=== PATIENT | male | born 1985 | race Two or more races ===

== ENCOUNTER 2020-01-26 09:25 | Inpatient (IN) | payer MEDICAID, OTHER ==
[~2020-01-26] VITALS: Ht 165.1 cm; Wt 174.0 kg
[2020-01-26 11:51] LABS: Hematocrit 35.7 % (41.0-53.0); Hemoglobin 11.6 g/dL (13.5-17.5); Mean Corpuscular Hemoglobin 29.7 pg (28.0-32.0); Mean Corpuscular Hgb Conc. 32.6 g/dL (32.0-36.0); Platelet Count (auto) 208 10^3/uL (140-450); Red Blood Cells 3.92 10^6/uL (4.5-5.90); Red Cell Distribution Width 19.1 % (11.8-14.3); White Blood Cell 28.7 10^3/uL (4.4-10.8)
[2020-01-26 11:57] LABS: Basophils % (manual) 0 (0.0-2.0); Blast Cells 0; Promyelocytes % 0; Reactive Lymphocytes 0
[2020-01-26 12:06] LABS: Albumin 1.8 g/dL (3.4-5.0); Calcium 8.2 mg/dL (8.5-10.1)
[2020-01-26 12:10] LABS: BUN/Creatinine Ratio 62.9; Bilirubin, Total 2.1 mg/dL (0.2-1.0); Total Protein 8.2 g/dL (6.4-8.2)
[2020-01-26 12:15] LABS: Potassium 6.1 mmol/L (3.5-5.1)
[2020-01-26] MEDS ORDERED: SODIUM CHLORIDE 0.9% 1,000 ML IV ONE (12:40)
[2020-01-26] MEDS ORDERED: PIPERACILLIN-TAZO 4.5GM 100 ML IV ONE (12:45)
[2020-01-26 13:18] LABS: Band Neutrophils % (manual) 13; Lymphocytes % (manual) 9 (10.0-50.0); Metamyelocytes % 3; Monocytes % (manual) 6 (0-12); Myelocytes % 3
[2020-01-26 13:19] LABS: Eosinophils % (manual) 0 (0-7)
[2020-01-26] MEDS ORDERED: SODIUM BICARBONATE 8.4 % INJ 50ML VIAL IV ONE (16:30)
[2020-01-26] MEDS ORDERED: CALCIUM CHL 100MG/ML 1,000 MG in D5W 5% 100 ML IV ONE (16:30)
[2020-01-26] MEDS ORDERED: FUROSEMIDE 20 MG/2 ML VIAL IV ONE (16:30)
[2020-01-26] MEDS ORDERED: MORPHINE SULF INJ 2 MG/ML SYRINGE 1ML IV PRN ×2 (17:15)
[2020-01-26] MEDS ORDERED: ALUM & MAG HYDROX-SIMETH LIQ(MAALOX) 30 ML PO PRN (17:15)
[2020-01-26] MEDS ORDERED: DOCUSATE SOD 100 MG CAP PO PRN (17:15)
[2020-01-26] MEDS ORDERED: LACTATED RINGER'S 2,000 ML IV ONE (17:15)
[2020-01-26] MEDS ORDERED: ACETAMINOPHEN 325 MG TAB PO PRN (17:15)
[2020-01-26] MEDS ORDERED: NITROGLYCERIN 0.4 MG SL TAB SL PRN (17:15)
[2020-01-26] MEDS ORDERED: VANCOMYCIN PER PHARMACY 0 MG IV SCH (17:15)
[2020-01-26] MEDS ORDERED: VANCOMYCIN 1GM/250ML 250 ML IV ONE (17:15)
[2020-01-26] MEDS ORDERED: LORazepam 0.5 MG TAB PO PRN (17:15)
[2020-01-26] MEDS ORDERED: FUROSEMIDE 40 MG/4 ML VIAL IV ONE ×2 (17:15→19:00)
[2020-01-26 17:43] LABS: Creatine Kinase IFCC 255 U/L (39-308)
[2020-01-26 17:49] LABS: Cholesterol 122 mg/dL (< 200)
[2020-01-26 17:52] LABS: HDL Cholesterol 19 mg/dL (40-59); LDL Cholesterol 77 mg/dL (< 100); Triglycerides 197 mg/dL (< 150)
[2020-01-26] MEDS: PIPERACILLIN-TAZOB 3.375GM 100 ML IV SCH ×2 (17:57→23:20)
[2020-01-26] MEDS: SODIUM CHLORIDE 0.9% 1,000 ML IV SCH ×2 (18:07→23:13)
[2020-01-26] MEDS ORDERED: SODIUM BICARBONATE 8.4% INJ 50ML SYRINGE IV ONE (19:00)
[2020-01-26] MEDS ORDERED: SODIUM ZIRCONIUM CYCL 10 GM PAK PO ONE (19:00)
[2020-01-26] MEDS ORDERED: DEXTROSE (50%) 50ML SYRG IV ONE (19:00)
[2020-01-26] MEDS ORDERED: ALBUTEROL SULF 2.5 MG/0.5ML(0.5%) NEB SOLN NEB ONE (19:00)
[2020-01-26] MEDS ORDERED: InsuLIN REG 1unit/0.01ml Soln (100units/ml) IV ONE (19:00)
[2020-01-26] MEDS ORDERED: ALBUTEROL SULF 2.5 MG/0.5ML(0.5%) NEB SOLN ONE (19:10)
[2020-01-26] MEDS: VANCOMYCIN 1GM/250ML 250 ML IV SCH (21:06)
[2020-01-26 22:20] VITALS: BP 111/56
[2020-01-26] MEDS: ENOXAPARIN SOD 40 MG/0.4 ML SYRINGE SC SCH (22:27)
[2020-01-27] MEDS: HYDROcodone-ACET 5/325MG TAB PO PRN (00:30)
[2020-01-27] MEDS: VANCOMYCIN 1GM/250ML 250 ML IV SCH ×3 (01:51→13:53)
[2020-01-27] MEDS: FUROSEMIDE 40 MG/4 ML VIAL IV SCH ×2 (05:21→18:20)
[2020-01-27] MEDS: PIPERACILLIN-TAZOB 3.375GM 100 ML IV SCH ×3 (05:21→18:19)
[2020-01-27 05:28] LABS: Urine Amorphous Crystal FEW /hpf (None Seen); Urine Bacteria FEW /hpf (None Seen); Urine Blood 1+ /uL (Negative); Urine Specific Gravity 1.015 (1.001-1.035); Urine WBC 12 /hpf (0 - 3)
[2020-01-27 05:39] LABS: Alcohol, Urine < 3.0 mg/dL (0-10); Amphetamine Screen, Urine NEGATIVE (NEGATIVE); Barbiturate Scree,Urine NEGATIVE (NEGATIVE); Benzodiazephine Screen, Urine NEGATIVE (NEGATIVE); Cannabinoid Screen, Urine NEGATIVE (NEGATIVE); Cocaine Screen, Urine NEGATIVE (NEGATIVE); Opiate Scree,Urine NEGATIVE (NEGATIVE); Phencyclidine Screen, Urine NEGATIVE (NEGATIVE)
[2020-01-27 06:02] VITALS: BP 121/63
[2020-01-27] MEDS: GEMFIBROZIL 600 MG TAB PO SCH (08:35)
[2020-01-27] MEDS: ENOXAPARIN SOD 40 MG/0.4 ML SYRINGE SC SCH ×2 (08:35→22:13)
[2020-01-27 08:37] LABS: Hematocrit 34.2 % (41.0-53.0); Mean Corpuscular Hemoglobin 29.4 pg (28.0-32.0); Mean Corpuscular Hgb Conc. 32.3 g/dL (32.0-36.0); Mean Corpuscular Volume 91.1 fL (80.0-100.0); Platelet Count (auto) 164 10^3/uL (140-450); Red Blood Cells 3.75 10^6/uL (4.5-5.90); Red Cell Distribution Width 19.5 % (11.8-14.3); White Blood Cell 21.2 10^3/uL (4.4-10.8)
[2020-01-27 08:45] LABS: Basophils % (manual) 0 (0.0-2.0); Blast Cells 0; Eosinophils % (manual) 0 (0-7); Promyelocytes % 0; Reactive Lymphocytes 0
[2020-01-27 08:57] LABS: Potassium 4.7 mmol/L (3.5-5.1)
[2020-01-27 09:00] VITALS: BP 108/54
[2020-01-27 09:05] LABS: INR 1.09 (0.9-1.15); Partial Thromboplastin Time 31.9 sec (23.64-32.05)
[2020-01-27 09:07] LABS: Albumin 1.6 g/dL (3.4-5.0); BUN/Creatinine Ratio 73.8; Bilirubin, Total 1.7 mg/dL (0.2-1.0); Calcium 7.9 mg/dL (8.5-10.1); Magnesium 3.3 mg/dL (1.6-2.6); Total Protein 7.5 g/dL (6.4-8.2)
[2020-01-27 09:16] LABS: Band Neutrophils % (manual) 11; Lymphocytes % (manual) 7 (10.0-50.0); Metamyelocytes % 1; Monocytes % (manual) 4 (0-12); Myelocytes % 4
[2020-01-27 13:00] VITALS: BP 108/42
[2020-01-27 17:00] VITALS: BP 128/54
[2020-01-27 22:00] VITALS: BP 123/60
[2020-01-28] MEDS: ONDANSETRON HCL 4 MG/2 ML VIAL IV PRN (00:14)
[2020-01-28] MEDS: PIPERACILLIN-TAZOB 3.375GM 100 ML IV SCH ×4 (00:14→18:46)
[2020-01-28] MEDS: SODIUM CHLORIDE 0.9% 1,000 ML IV SCH ×2 (02:31→18:46)
[2020-01-28 05:00] VITALS: BP 104/41
[2020-01-28] MEDS: FUROSEMIDE 40 MG/4 ML VIAL IV SCH ×2 (05:57→18:46)
[2020-01-28 07:17] LABS: Hematocrit 34.9 % (41.0-53.0); Hemoglobin 11.2 g/dL (13.5-17.5); Mean Corpuscular Hemoglobin 29.4 pg (28.0-32.0); Mean Corpuscular Hgb Conc. 32.2 g/dL (32.0-36.0); Mean Corpuscular Volume 91.4 fL (80.0-100.0); Platelet Count (auto) 139 10^3/uL (140-450); Red Blood Cells 3.81 10^6/uL (4.5-5.90); White Blood Cell 17.4 10^3/uL (4.4-10.8)
[2020-01-28 07:33] LABS: Basophils % (manual) 0 (0.0-2.0); Blast Cells 0; Eosinophils % (manual) 0 (0-7); Promyelocytes % 0; Reactive Lymphocytes 0
[2020-01-28 07:59] LABS: Albumin 1.6 g/dL (3.4-5.0); BUN/Creatinine Ratio 62.4; Bilirubin, Total 1.9 mg/dL (0.2-1.0); Calcium 7.7 mg/dL (8.5-10.1); Total Protein 7.6 g/dL (6.4-8.2)
[2020-01-28 08:20] LABS: Band Neutrophils % (manual) 3; Lymphocytes % (manual) 8 (10.0-50.0); Metamyelocytes % 2; Monocytes % (manual) 3 (0-12); Myelocytes % 2
[2020-01-28] MEDS: GEMFIBROZIL 600 MG TAB PO SCH (09:10)
[2020-01-28] MEDS: ENOXAPARIN SOD 40 MG/0.4 ML SYRINGE SC SCH ×2 (09:11→22:23)
[2020-01-28 09:27] VITALS: BP 121/69
[2020-01-28] MEDS: VANCOMYCIN 1GM/250ML 250 ML IV SCH (10:30)
[2020-01-28 17:00] VITALS: BP 136/77
[2020-01-28 22:00] VITALS: BP 126/59
[2020-01-29] MEDS: PIPERACILLIN-TAZOB 3.375GM 100 ML IV SCH ×4 (00:08→17:10)
[2020-01-29 05:00] VITALS: BP 129/59
[2020-01-29] MEDS: VANCOMYCIN 1GM/250ML 250 ML IV SCH (05:00)
[2020-01-29] MEDS: FUROSEMIDE 40 MG/4 ML VIAL IV SCH ×2 (06:01→17:10)
[2020-01-29 08:27] VITALS: BP 139/66
[2020-01-29] MEDS: GEMFIBROZIL 600 MG TAB PO SCH (08:53)
[2020-01-29] MEDS: ENOXAPARIN SOD 40 MG/0.4 ML SYRINGE SC SCH ×2 (08:54→22:00)
[2020-01-29 09:07] LABS: Hematocrit 34.9 % (41.0-53.0); Hemoglobin 11.2 g/dL (13.5-17.5); Mean Corpuscular Hemoglobin 29.5 pg (28.0-32.0); Mean Corpuscular Hgb Conc. 32.2 g/dL (32.0-36.0); Mean Corpuscular Volume 91.7 fL (80.0-100.0); Platelet Count (auto) 113 10^3/uL (140-450); White Blood Cell 13.5 10^3/uL (4.4-10.8)
[2020-01-29 09:12] LABS: Basophils % (manual) 0 (0.0-2.0); Blast Cells 0; Eosinophils % (manual) 0 (0-7); Monocytes % (manual) 0 (0-12); Promyelocytes % 0; Reactive Lymphocytes 0
[2020-01-29 09:28] LABS: BUN/Creatinine Ratio 47.4; Potassium 3.1 mmol/L (3.5-5.1)
[2020-01-29 09:30] LABS: Band Neutrophils % (manual) 3; Lymphocytes % (manual) 10 (10.0-50.0); Metamyelocytes % 3; Myelocytes % 1
[2020-01-29] MEDS: SODIUM CHLORIDE 0.9% 1,000 ML IV SCH ×2 (11:25→14:30)
[2020-01-29 12:05] VITALS: BP 142/75
[2020-01-29 16:53] VITALS: BP 152/66
[2020-01-30 00:57] VITALS: BP 103/58
[2020-01-30 05:45] VITALS: BP 103/56
[2020-01-30] MEDS: FUROSEMIDE 40 MG/4 ML VIAL IV SCH ×2 (06:00→17:35)
[2020-01-30] MEDS: SODIUM CHLORIDE 0.9% 1,000 ML IV SCH ×3 (07:00→23:20)
[2020-01-30 09:22] VITALS: BP 144/71
[2020-01-30] MEDS: ERTAPENEM SOD INJ 1 GM in SODIUM CHL 0.9% 50 ML IV SCH (10:26)
[2020-01-30] MEDS: GEMFIBROZIL 600 MG TAB PO SCH (10:26)
[2020-01-30] MEDS: ENOXAPARIN SOD 40 MG/0.4 ML SYRINGE SC SCH ×2 (10:27→21:34)
[2020-01-30 13:00] VITALS: BP 149/56
[2020-01-30] MEDS: ONDANSETRON HCL 4 MG/2 ML VIAL IV PRN (14:45)
[2020-01-30 17:32] VITALS: BP 146/77
[2020-01-30 17:43] LABS: Basophils # (auto) 0 10 ^3/uL (0-0.2); Basophils % (auto) 0.3 % (0.0-2.0); Eosinophils # (auto) 0 10 ^3/uL (0-0.8); Eosinophils % (auto) 0.3 % (0.0-7.0); Hematocrit 30.6 % (41.0-53.0); Hemoglobin 9.8 g/dL (13.5-17.5); Lymphocytes # (auto) 1.3 10 ^3/uL (0.4-5.4); Lymphocytes % (auto) 9.5 % (10.0-50.0); Mean Corpuscular Hemoglobin 29.6 pg (28.0-32.0); Mean Corpuscular Volume 92.5 fL (80.0-100.0); Monocytes # (auto) 1.1 10 ^3/uL (0-1.3); Monocytes % (auto) 7.8 % (0.0-12.0); Neutrophils # (auto) 11.7 10 ^3/uL (1.6-8.6); Neutrophils % (auto) 82.1 % (37.0-80.0); Nucleated Red Blood Cells % 0.1 %; Platelet Count (auto) 75 10^3/uL (140-450); Red Blood Cells 3.31 10^6/uL (4.5-5.90); Red Cell Distribution Width 18.8 % (11.8-14.3); White Blood Cell 14.2 10^3/uL (4.4-10.8)
[2020-01-30 17:46] LABS: BUN/Creatinine Ratio 39.7; Calcium 7.6 mg/dL (8.5-10.1)
[2020-01-30 17:50] LABS: Potassium 2.9 mmol/L (3.5-5.1)
[2020-01-30] MEDS ORDERED: POTASSIUM CHL 20 Meq TABLET PO ONE (18:00)
[2020-01-31 00:07] VITALS: BP 126/71
[2020-01-31 05:16] VITALS: BP 115/62
[2020-01-31] MEDS: FUROSEMIDE 40 MG/4 ML VIAL IV SCH ×2 (06:11→18:00)
[2020-01-31] MEDS: SODIUM CHLORIDE 0.9% 1,000 ML IV SCH ×2 (06:11→16:30)
[2020-01-31 09:00] VITALS: BP 123/58
[2020-01-31] MEDS: ENOXAPARIN SOD 40 MG/0.4 ML SYRINGE SC SCH ×2 (10:00→21:22)
[2020-01-31] MEDS: GEMFIBROZIL 600 MG TAB PO SCH (10:38)
[2020-01-31] MEDS: ERTAPENEM SOD INJ 1 GM in SODIUM CHL 0.9% 50 ML IV SCH (10:39)
[2020-01-31 13:00] VITALS: BP 121/61
[2020-01-31 17:00] VITALS: BP_SYST 104; BP_SYST 106; BP_DIAS 50; BP_DIAS 64
[2020-01-31 21:10] LABS: Basophils # (auto) 0 10 ^3/uL (0-0.2); Basophils % (auto) 0.3 % (0.0-2.0); Eosinophils # (auto) 0.1 10 ^3/uL (0-0.8); Eosinophils % (auto) 0.6 % (0.0-7.0); Hemoglobin 9.9 g/dL (13.5-17.5); Monocytes # (auto) 1.4 10 ^3/uL (0-1.3); Neutrophils # (auto) 10.7 10 ^3/uL (1.6-8.6)
[2020-01-31 21:12] LABS: Hematocrit 30.6 % (41.0-53.0); Lymphocytes # (auto) 1.4 10 ^3/uL (0.4-5.4); Lymphocytes % (auto) 10.6 % (10.0-50.0); Mean Corpuscular Hemoglobin 29.6 pg (28.0-32.0); Mean Corpuscular Hgb Conc. 32.5 g/dL (32.0-36.0); Monocytes % (auto) 10.4 % (0.0-12.0); Neutrophils % (auto) 78.1 % (37.0-80.0); Platelet Count (auto) 57 10^3/uL (140-450); Red Blood Cells 3.36 10^6/uL (4.5-5.90); Red Cell Distribution Width 18.6 % (11.8-14.3); White Blood Cell 13.7 10^3/uL (4.4-10.8)
[2020-01-31] MEDS: HYDROcodone-ACET 5/325MG TAB PO PRN (21:22)
[2020-01-31 21:34] LABS: Albumin 1.7 g/dL (3.4-5.0); Calcium 7.9 mg/dL (8.5-10.1)
[2020-01-31 21:37] LABS: Bilirubin, Total 1.1 mg/dL (0.2-1.0); Total Protein 7.5 g/dL (6.4-8.2)
[2020-01-31 21:41] LABS: BUN/Creatinine Ratio 26.2; Potassium 2.9 mmol/L (3.5-5.1)
[2020-01-31 22:00] VITALS: BP 118/58
[2020-01-31] MEDS ORDERED: POTASSIUM CHL 20 Meq TABLET PO ONE (22:00)
[2020-01-31] MEDS: POTASSIUM CHL 20MEQ/100ML 100 ML IV SCH (22:51)
[2020-02-01] MEDS: POTASSIUM CHL 20MEQ/100ML 100 ML IV SCH (00:05)
[2020-02-01] MEDS: SODIUM CHLORIDE 0.9% 1,000 ML IV SCH ×2 (03:31→12:30)
[2020-02-01] MEDS: HYDROcodone-ACET 5/325MG TAB PO PRN (05:05)
[2020-02-01] MEDS: FUROSEMIDE 40 MG/4 ML VIAL IV SCH ×2 (06:00→17:36)
[2020-02-01 09:00] VITALS: BP 126/63
[2020-02-01] MEDS: GEMFIBROZIL 600 MG TAB PO SCH (10:26)
[2020-02-01] MEDS: ENOXAPARIN SOD 40 MG/0.4 ML SYRINGE SC SCH (10:26)
[2020-02-01] MEDS: ERTAPENEM SOD INJ 1 GM in SODIUM CHL 0.9% 50 ML IV SCH (10:26)
[2020-02-01 13:00] VITALS: BP 119/67
[2020-02-01 14:45] LABS: Basophils # (auto) 0.1 10 ^3/uL (0-0.2); Basophils % (auto) 0.5 % (0.0-2.0); Eosinophils # (auto) 0.1 10 ^3/uL (0-0.8); Eosinophils % (auto) 0.6 % (0.0-7.0); Hematocrit 28.6 % (41.0-53.0); Hemoglobin 9.3 g/dL (13.5-17.5); Lymphocytes # (auto) 1.6 10 ^3/uL (0.4-5.4); Lymphocytes % (auto) 12.4 % (10.0-50.0); Mean Corpuscular Hgb Conc. 32.7 g/dL (32.0-36.0); Mean Corpuscular Volume 88.8 fL (80.0-100.0); Monocytes # (auto) 1.4 10 ^3/uL (0-1.3); Monocytes % (auto) 10.9 % (0.0-12.0); Neutrophils # (auto) 9.8 10 ^3/uL (1.6-8.6); Neutrophils % (auto) 75.6 % (37.0-80.0); Platelet Count (auto) 55 10^3/uL (140-450); Red Blood Cells 3.22 10^6/uL (4.5-5.90); Red Cell Distribution Width 18.5 % (11.8-14.3)
[2020-02-01 14:51] LABS: BUN/Creatinine Ratio 27.3; Calcium 7.7 mg/dL (8.5-10.1); Potassium 3.1 mmol/L (3.5-5.1)
[2020-02-01] MEDS ORDERED: VANCOMYCIN PER PHARMACY 0 MG IV SCH (16:45)
[2020-02-01 17:00] VITALS: BP 126/70
[2020-02-01] MEDS: DOXYCYCLINE 100MG/250ML 250 ML IV SCH (18:47)
[2020-02-01 22:00] VITALS: BP 108/49
[2020-02-02] MEDS: ENOXAPARIN SOD 40 MG/0.4 ML SYRINGE SC SCH ×2 (00:15→08:36)
[2020-02-02] MEDS: SODIUM CHLORIDE 0.9% 1,000 ML IV SCH ×2 (00:15→08:30)
[2020-02-02] MEDS: HYDROcodone-ACET 5/325MG TAB PO PRN ×2 (00:16→05:55)
[2020-02-02 05:00] VITALS: BP 127/55
[2020-02-02] MEDS: DOXYCYCLINE 100MG/250ML 250 ML IV SCH ×2 (05:18→17:37)
[2020-02-02] MEDS: FUROSEMIDE 40 MG/4 ML VIAL IV SCH (05:18)
[2020-02-02 07:16] LABS: Basophils # (auto) 0.1 10 ^3/uL (0-0.2); Eosinophils # (auto) 0.1 10 ^3/uL (0-0.8); Hematocrit 28.3 % (41.0-53.0); Neutrophils # (auto) 9.3 10 ^3/uL (1.6-8.6); Nucleated Red Blood Cells % 0.1 %
[2020-02-02 07:17] LABS: Basophils % (auto) 0.6 % (0.0-2.0); Eosinophils % (auto) 0.9 % (0.0-7.0); Hemoglobin 9.3 g/dL (13.5-17.5); Lymphocytes % (auto) 15.3 % (10.0-50.0); Mean Corpuscular Hemoglobin 29.6 pg (28.0-32.0); Mean Corpuscular Hgb Conc. 32.9 g/dL (32.0-36.0); Mean Corpuscular Volume 89.8 fL (80.0-100.0); Monocytes # (auto) 1.6 10 ^3/uL (0-1.3); Monocytes % (auto) 12.5 % (0.0-12.0); Neutrophils % (auto) 70.7 % (37.0-80.0); Platelet Count (auto) 60 10^3/uL (140-450); Red Blood Cells 3.15 10^6/uL (4.5-5.90); Red Cell Distribution Width 18.7 % (11.8-14.3); White Blood Cell 13.2 10^3/uL (4.4-10.8)
[2020-02-02 07:43] LABS: Albumin 1.5 g/dL (3.4-5.0); Calcium 7.6 mg/dL (8.5-10.1)
[2020-02-02 07:47] LABS: Bilirubin, Total 1.1 mg/dL (0.2-1.0); Total Protein 6.9 g/dL (6.4-8.2)
[2020-02-02 07:51] LABS: Potassium 2.8 mmol/L (3.5-5.1)
[2020-02-02] MEDS: GEMFIBROZIL 600 MG TAB PO SCH (08:36)
[2020-02-02 09:00] VITALS: BP 123/59
[2020-02-02] MEDS: ERTAPENEM SOD INJ 1 GM in SODIUM CHL 0.9% 50 ML IV SCH (09:45)
[2020-02-02] MEDS ORDERED: POTASSIUM CHLORIDE 80 MEQ, LIDOCAINE 1% (LOCAL ANESTH.) 6 ML in SODIUM CHL 0.9% 500 ML IV ONE (11:15)
[2020-02-02 12:43] LABS: INR 1.11 (0.9-1.15)
[2020-02-02] MEDS: FUROSEMIDE INJECTION 100 MG in D5W 5% 100 ML IV SCH ×3 (12:43→21:15)
[2020-02-02 12:48] LABS: BUN/Creatinine Ratio 29.8; Calcium 7.6 mg/dL (8.5-10.1)
[2020-02-02 12:56] LABS: Potassium 2.7 mmol/L (3.5-5.1)
[2020-02-02 13:15] VITALS: BP 115/55
[2020-02-02] MEDS ORDERED: POTASSIUM CHL 20MEQ/100ML 100 ML IV ONE (13:15)
[2020-02-02] MEDS: POTASSIUM CHL 20 Meq TABLET PO SCH ×2 (13:52→20:46)
[2020-02-02] MEDS ORDERED: MAGNESIUM SULFATE 1GM/100ML 100 ML IV SCH (14:00)
[2020-02-02 17:00] VITALS: BP 114/63
[2020-02-02] MEDS: MAGNESIUM SULFATE 1GM/100ML 100 ML IV SCH ×2 (18:34→20:27)
[2020-02-02] MEDS: MAGNESIUM OXIDE 400 MG TAB PO SCH (20:45)
[2020-02-02 22:00] VITALS: BP 112/58
[2020-02-03] MEDS: FUROSEMIDE INJECTION 100 MG in D5W 5% 100 ML IV SCH ×5 (02:15→22:15)
[2020-02-03] MEDS: POTASSIUM CHL 20 Meq TABLET PO SCH ×3 (05:35→22:14)
[2020-02-03] MEDS: DOXYCYCLINE 100MG/250ML 250 ML IV SCH ×2 (05:36→17:37)
[2020-02-03 05:50] LABS: Potassium 2.8 mmol/L (3.5-5.1)
[2020-02-03] MEDS: POTASSIUM CHL 20MEQ/100ML 100 ML IV SCH ×4 (06:09→12:00)
[2020-02-03 09:00] VITALS: BP 137/69
[2020-02-03] MEDS: GEMFIBROZIL 600 MG TAB PO SCH (09:45)
[2020-02-03] MEDS: MAGNESIUM OXIDE 400 MG TAB PO SCH ×2 (09:45→22:14)
[2020-02-03] MEDS: ERTAPENEM SOD INJ 1 GM in SODIUM CHL 0.9% 50 ML IV SCH (12:00)
[2020-02-03 12:34] VITALS: BP 144/75
[2020-02-03 17:01] VITALS: BP 126/45
[2020-02-03 22:00] VITALS: BP 121/63
[2020-02-03] MEDS: HYDROcodone-ACET 5/325MG TAB PO PRN (22:14)
[2020-02-04] MEDS: FUROSEMIDE INJECTION 100 MG in D5W 5% 100 ML IV SCH ×5 (03:15→21:54)
[2020-02-04] MEDS: DOXYCYCLINE 100MG/250ML 250 ML IV SCH ×2 (05:06→18:16)
[2020-02-04] MEDS: POTASSIUM CHL 20 Meq TABLET PO SCH ×3 (05:06→21:40)
[2020-02-04 05:30] VITALS: BP 110/62
[2020-02-04 08:00] VITALS: BP 138/67
[2020-02-04] MEDS: GEMFIBROZIL 600 MG TAB PO SCH (09:39)
[2020-02-04] MEDS: ERTAPENEM SOD INJ 1 GM in SODIUM CHL 0.9% 50 ML IV SCH (09:39)
[2020-02-04] MEDS: MAGNESIUM OXIDE 400 MG TAB PO SCH ×2 (09:39→21:41)
[2020-02-04 11:49] LABS: BUN/Creatinine Ratio 27.1; Calcium 8.3 mg/dL (8.5-10.1); Potassium 3.8 mmol/L (3.5-5.1)
[2020-02-04 12:00] VITALS: BP 87/43
[2020-02-04] MEDS ORDERED: POTASSIUM EFFERVESENT TAB 25 MEQ GT ONE (13:45)
[2020-02-04] MEDS ORDERED: ALPRAZolam 0.5 MG TAB PO PRN (16:45)
[2020-02-04 17:03] VITALS: BP 133/67
[2020-02-04] MEDS: ATORVASTATIN 20 MG TAB PO SCH (21:40)
[2020-02-04 22:35] VITALS: BP 132/73
[2020-02-05] MEDS: FUROSEMIDE INJECTION 100 MG in D5W 5% 100 ML IV SCH ×2 (04:16→09:15)
[2020-02-05] MEDS: POTASSIUM CHL 20 Meq TABLET PO SCH ×3 (05:08→23:35)
[2020-02-05] MEDS: DOXYCYCLINE 100MG/250ML 250 ML IV SCH ×2 (05:08→18:07)
[2020-02-05 05:32] VITALS: BP 134/65
[2020-02-05 07:17] LABS: Basophils # (auto) 0.1 10 ^3/uL (0-0.2); Basophils % (auto) 1.2 % (0.0-2.0); Eosinophils # (auto) 0.1 10 ^3/uL (0-0.8); Eosinophils % (auto) 1.2 % (0.0-7.0); Hematocrit 31.4 % (41.0-53.0); Hemoglobin 10.2 g/dL (13.5-17.5); Lymphocytes # (auto) 2.5 10 ^3/uL (0.4-5.4); Lymphocytes % (auto) 21.2 % (10.0-50.0); Mean Corpuscular Hemoglobin 29.7 pg (28.0-32.0); Mean Corpuscular Hgb Conc. 32.6 g/dL (32.0-36.0); Monocytes # (auto) 1.1 10 ^3/uL (0-1.3); Monocytes % (auto) 9.6 % (0.0-12.0); Neutrophils % (auto) 66.8 % (37.0-80.0); Nucleated Red Blood Cells % 0.1 %; Platelet Count (auto) 255 10^3/uL (140-450); Red Blood Cells 3.45 10^6/uL (4.5-5.90); White Blood Cell 11.9 10^3/uL (4.4-10.8)
[2020-02-05 07:39] LABS: BUN/Creatinine Ratio 20.5; Calcium 8.4 mg/dL (8.5-10.1); Potassium 3.2 mmol/L (3.5-5.1)
[2020-02-05 08:00] VITALS: BP 123/67
[2020-02-05 09:00] VITALS: BP 105/54
[2020-02-05] MEDS: ERTAPENEM SOD INJ 1 GM in SODIUM CHL 0.9% 50 ML IV SCH (10:00)
[2020-02-05] MEDS: ENOXAPARIN SOD 40 MG/0.4 ML SYRINGE SC SCH (10:00)
[2020-02-05] MEDS: ASPirin 325 MG TAB PO SCH (10:00)
[2020-02-05] MEDS: MAGNESIUM OXIDE 400 MG TAB PO SCH ×2 (10:12→23:35)
[2020-02-05] MEDS: GEMFIBROZIL 600 MG TAB PO SCH (10:12)
[2020-02-05 13:00] VITALS: BP 119/62
[2020-02-05] MEDS ORDERED: ceFAZolin 1GM/50ML 50 ML IV ONE (13:58)
[2020-02-05] MEDS ORDERED: ROPIVACAINE 0.5% (5MG/ML) 20ML AMPULE IJ ONE (14:13)
[2020-02-05] MEDS ORDERED: NEOMYCIN-BACITRACIN-POLYM 15GM TOP OINT TOP ONE (14:13)
[2020-02-05 17:00] VITALS: BP 126/70
[2020-02-05] MEDS: HYDROcodone-ACET 5/325MG TAB PO PRN (18:34)
[2020-02-05 22:00] VITALS: BP 122/60
[2020-02-05] MEDS: POTASSIUM EFFERVESENT TAB 25 MEQ GT SCH (23:34)
[2020-02-05] MEDS: ATORVASTATIN 20 MG TAB PO SCH (23:35)
[2020-02-06] MEDS: POTASSIUM CHL 20 Meq TABLET PO SCH ×2 (04:55→16:20)
[2020-02-06] MEDS: DOXYCYCLINE 100MG/250ML 250 ML IV SCH ×2 (04:55→17:46)
[2020-02-06 05:00] VITALS: BP 115/57
[2020-02-06 07:36] LABS: BUN/Creatinine Ratio 21.4; Calcium 8.4 mg/dL (8.5-10.1); Potassium 3.1 mmol/L (3.5-5.1)
[2020-02-06 08:59] VITALS: BP 130/63
[2020-02-06] MEDS ORDERED: FUROSEMIDE 40 MG/4 ML VIAL IV SCH (10:00)
[2020-02-06] MEDS: POTASSIUM EFFERVESENT TAB 25 MEQ GT SCH (10:38)
[2020-02-06] MEDS: ERTAPENEM SOD INJ 1 GM in SODIUM CHL 0.9% 50 ML IV SCH (10:39)
[2020-02-06] MEDS: GEMFIBROZIL 600 MG TAB PO SCH (11:04)
[2020-02-06] MEDS: ASPirin 325 MG TAB PO SCH (11:04)
[2020-02-06] MEDS: MAGNESIUM OXIDE 400 MG TAB PO SCH (11:04)
[2020-02-06] MEDS: ENOXAPARIN SOD 40 MG/0.4 ML SYRINGE SC SCH (11:05)
[2020-02-06 13:00] VITALS: BP 130/69
[2020-02-06] MEDS ORDERED: LIDOCAINE 1% (LOCAL ANESTH.) PF 5ml SDV ID ONE (15:00)
[2020-02-06 16:48] VITALS: BP 130/69
[2020-02-06 21:30] VITALS: BP 107/58
[2020-02-06] MEDS ORDERED: SODIUM CHLOR 0.9% PF (SALINE LOCK) 10ML VIAL/SYR IV SCH (22:00)
== END 2020-02-06 21:38 | DRG 720 ==
LOC: EDBD 09:25 → ER 09:25 → TELE 09:26 → TELE-EAST 22:20 → TELE-CENTR 02-02 20:05
PROVIDERS: ADMIT Hospitalist; ATTEND Internal Medicine
PROC: 02HV33Z Insertion of Infusion Device into Superior Vena Cava, Percutaneous Approach (ICD-10-PCS; principal; 2020-02-03)
DX: A41.9 Sepsis, unspecified organism (principal); N17.9 Acute kidney failure, unspecified; E87.2 Acidosis; E88.81 Metabolic syndrome and other insulin resistance; E86.0 Dehydration; L02.416 Cutaneous abscess of left lower limb; E87.5 Hyperkalemia; R63.0 Anorexia; F33.1 Major depressive disorder, recurrent, moderate; L03.115 Cellulitis of right lower limb; L03.116 Cellulitis of left lower limb; E78.5 Hyperlipidemia, unspecified; I87.2 Venous insufficiency (chronic) (peripheral); E03.9 Hypothyroidism, unspecified; N18.3 Chronic kidney disease, stage 3 (moderate); E80.6 Other disorders of bilirubin metabolism; D64.9 Anemia, unspecified; E11.52 Type 2 diabetes mellitus with diabetic peripheral angiopathy with gangrene; E11.69 Type 2 diabetes mellitus with other specified complication; L89.624 Pressure ulcer of left heel, stage 4; L89.614 Pressure ulcer of right heel, stage 4; L89.890 Pressure ulcer of other site, unstageable; L89.143 Pressure ulcer of left lower back, stage 3; E11.22 Type 2 diabetes mellitus with diabetic chronic kidney disease; E87.6 Hypokalemia; M86.8X7 Other osteomyelitis, ankle and foot; Z85.47 Personal history of malignant neoplasm of testis; Z68.44 Body mass index [BMI] 60.0-69.9, adult; Z03.818 Encounter for observation for suspected exposure to other biological agents ruled out; E66.2 Morbid (severe) obesity with alveolar hypoventilation; I96 Gangrene, not elsewhere classified
CPT/HCPCS: 36415; 36569; 71045; 73630; 76881; 80048; 80053; 80061; 80202; 80307; 81001; 82085; 82550; 83036; 83735; 83880; 84100; 84132; 84443; 84484; 85007; 85025; 85027; 85610; 85730; 87077; 87086; 87186; 87205; 87493; 93005; 93306; 93926; 94640; 96365; 96368; 96375; 97110; 97163; 97530; G0378; J0690; J1335; J1815; J2001; J2405; J2543; J3480; J3490; J7060